=== PATIENT | male | born 1960 ===

== ENCOUNTER 2022-02-04 07:45 | Day surgery (SDC) | payer OTHER | END 2022-02-04 23:28 | disposition home or self-care (01) | LOC: CT 07:45 | DX: R07.9 Chest pain, unspecified (principal); R78.9 Finding of unspecified substance, not normally found in blood | CPT/HCPCS: 75571 ==

== ENCOUNTER 2022-11-12 06:33 | Day surgery (SDC) | payer OTHER ==
[2022-11-12] VITALS (14 sets, daily range): BP systolic 115–135; BP diastolic 77–101
[~2022-11-12] VITALS: Ht 180.3 cm; Wt 81.6 kg
[~2022-11-12 06:33] MED LIST: ABILIFY MYCITE5 M2 PO; AMLO10 PO; ASPI81CH PO; ATOR80 PO; Buspirone HCl15 MG PO; ESOM20 PO; LOSA50 PO; NITR.4SL SL; SERT100 PO; XYZAL5 MG PO
--- NOTE | 2022-11-12 08:30 | NUR ---
PT AND SON VERBALIZED UNDERSTANDING OF WRITTEN AND VERBAL D/C INST. IV REMOVED. PT TAKEN OUT OF THE HRT CENTER VIA W/C.
== END 2022-11-12 22:52 | disposition home or self-care (01) ==
LOC: MHTC 06:33
DX: R91.1 Solitary pulmonary nodule (principal); J44.9 Chronic obstructive pulmonary disease, unspecified; I10 Essential (primary) hypertension; E78.5 Hyperlipidemia, unspecified; F17.200 Nicotine dependence, unspecified, uncomplicated; I25.10 Atherosclerotic heart disease of native coronary artery without angina pectoris
CPT/HCPCS: 93312; 93325; A9270; J2704; J7030